=== PATIENT | female | born 1985 | race Caucasian/White ===

== ENCOUNTER 2020-04-03 17:16 | Emergency (ER) | payer OTHER ==
--- NOTE | 2020-04-03 17:33 | ED ---
General Adult HPI - General Chief complaint: Urogenital Stated complaint: blood in urine/back pain Time Seen by Provider: 04/03/20 17:29 Source: patient Mode of arrival: ambulatory Limitations: no limitations - History of Present Illness Initial comments: Patient presents the ED complaining of having urinary frequency and burning dysuria for the past 4 days or so. Patient states that she also developed hematuria today. Patient states that she is currently on her period. Patient admits to having mild diffuse lumbar back pain as well. Patient denies having any abdominal pain. Patient denies fever or chills, trauma or injury, headache, chest pain, dyspnea, dizziness, upper abdominal pain, nausea or vomiting, diarrhea or constipation, bloody or melanotic stool, vaginal discharge, leg pain/numbness/weakness, incontinence or urinary retention, or any other symptoms or complaints. Patient states that she has had urinary tract infections in the past. - Related Data Previous Rx's Medication Instructions Recorded Ciprofloxacin HCl 250 mg PO Q12H 5 Days #10 tab 04/03/20 Allergies Allergy/AdvReac Type Severity Reaction Status Date / Time tree nut Allergy Rash/Hives Verified 04/03/20 17:27 Review of Systems ROS Statement: Those systems with pertinent positive or pertinent negative responses have been documented in the HPI. ROS Other: All systems not noted in ROS Statement are negative. Past Medical History Additional Past Medical History / Comment(s): hashimotos disease History of Any Multi-Drug Resistant Organisms: None Reported Past Surgical History: No Surgical Hx Reported Smoking Status: Never smoker Past Alcohol Use History: None Reported Past Drug Use History: None Reported General Exam Limitations: no limitations General appearance: alert, in no apparent distress Head exam: Present: atraumatic, normocephalic Eye exam: Present: normal appearance, EOMI ENT exam: Present: mucous membranes moist Respiratory exam: Present: normal lung sounds bilaterally. Absent: respiratory distress, wheezes, rales, rhonchi Cardiovascular Exam: Present: regular rate, normal rhythm, normal heart sounds, other (Normal radial pulses bilaterally) GI/Abdominal exam: Present: soft, other (Mild suprapubic abdominal tenderness). Absent: distended, guarding, rebound Back exam: Present: normal inspection, full ROM. Absent: tenderness, CVA tenderness (R), CVA tenderness (L) Neurological exam: Present: alert, oriented X3. Absent: motor sensory deficit Psychiatric exam: Present: normal affect, normal mood Skin exam: Present: warm, dry, intact, normal color Course Vital Signs 04/03/20 17:24 Temperature 98.7 F Pulse Rate 84 Respiratory 18 Rate Blood Pressure 118/77 O2 Sat by Pulse 99 Oximetry Medical Decision Making - Medical Decision Making Patient is aware of her test results, and she feels comfortable going home at this time. Patient symptoms and UA are highly suggestive of UTI/hemorrhagic cystitis. Patient was given a dose of oral ciprofloxacin in the ED. Will discharge her home with a prescription for a course of ciprofloxacin. Patient was counseled about UTIs, and she was clearly explained return and follow-up instructions. She was instructed to follow up closely with her primary care provider. - Lab Data Lab Results 04/03/20 04/03/20 Range/Units 17:28 17:28 Urine Color Red Urine Appearance Turbid H (Clear) Urine pH 6.5 (5.0-8.0) Ur Specific [place] 1.025 (1.001-1.035) Urine Protein 3+ H (Negative) Urine Glucose (UA) Negative (Negative) Urine Ketones Negative (Negative) Urine Blood Large H (Negative) Urine Nitrite Negative (Negative) Urine Bilirubin Negative (Negative) Urine Urobilinogen <2.0 (<2.0) mg/dL Ur Leukocyte Esterase Large H (Negative) Urine RBC >182 H (0-5) /hpf Urine WBC >182 H (0-5) /hpf Urine WBC Clumps Many H (None) /hpf Urine Mucus Occasional H (None) /hpf Urine HCG, Qual Not Detected (Not Detectd) Disposition Clinical Impression: Urinary tract infection Disposition: HOME SELF-CARE Condition: Stable Instructions (If sedation given, give patient instructions): Urinary Tract Infection in Women (ED) Additional Instructions: Return to the ER immediately should you develop new or worsening pain, a fever, vomiting, feeling dizzy or faint, or new or worsening symptoms. Follow up closely with your primary care provider. Prescriptions: Ciprofloxacin HCl 250 mg PO Q12H 5 Days #10 tab Is patient prescribed a controlled substance at d/c from ED?: No Referrals: Kashif Man MD [Primary Care Provider] - 1-2 days Time of Disposition: 18:30
[2020-04-03 18:02] LABS: Appearance,Urine Turbid (Clear); Bilirubin,Urine Negative (Negative); Blood,Urine Large (Negative); Color,Urine Red; Glucose,Urine (UA) Negative (Negative); Ketones,Urine Negative (Negative); Leukocyte Esterase,Urine Large (Negative); Mucus,Urine Occasional /hpf; Nitrite,Urine Negative (Negative); PH, Urine 6.5 (5.0-8.0); Protein,Urine 3+ (Negative); RBC,Urine >182 /hpf (0-5); Urobilinogen,Urine <2.0 mg/dL (<2.0); WBC,Urine >182 /hpf (0-5)
[2020-04-03 18:03] LABS: Specific Gravity,Urine 1.025 (1.001-1.035)
[2020-04-03] MEDS ORDERED: CIPROFLOXACIN HCL 250 MG TAB PO STA (18:26)
[2020-04-03 18:58] VITALS: BP 119/74; PULSE 67; RESP 17; TEMP 98
== END 2020-04-03 18:58 | disposition home or self-care (01) ==
LOC: EC 17:16
DX: N39.0 Urinary tract infection, site not specified (principal); Z91.018 Allergy to other foods
CPT/HCPCS: 81001; 81025; 87086; 99283

== ENCOUNTER → 2024-08-27 | Outpatient (CLI) | payer OTHER ==
[2024-08-27 15:37] LABS: BUN/Creat Ratio 17.88 Ratio (12.00-20.00); Blood Urea Nitrogen 14.3 mg/dL (9.0-27.0); Chloride 106 mmol/L (96-109); Chol/HDL Ratio 2.82 Ratio; Glucose 93 mg/dL (70-110); LDL Cholesterol,Calculated 138.3 mg/dL (0.0-131.0); Potassium 4.5 mmol/L (3.5-5.5); Sodium 138 mmol/L (135-145)
[2024-08-27 15:38] LABS: ALT 26 U/L (8-44); AST 20 U/L (13-35); Albumin 4.2 g/dL (3.8-4.9); Albumin/Globulin Ratio 1.62 Ratio (1.60-3.17); Alkaline Phosphatase 71 U/L (41-126); Calcium 9.4 mg/dL (8.7-10.3); Carbon Dioxide 22.9 mmol/L (21.6-31.8); Globulin 2.6 g/dL (1.6-3.3); Total Bilirubin 0.6 mg/dL (0.3-1.2); Total Protein 6.8 g/dL (6.2-8.2)
[2024-08-27 17:05] LABS: Basophils # (A) 0.08 X 10*3/uL (0.00-0.10); Eosinophils # (A) 0.23 X 10*3/uL (0.04-0.35); Eosinophils % (A) 2.7 %; HGB 13.4 g/dL (12.0-15.0); Lymphocytes # (A) 2.83 X 10*3/uL (0.90-5.00); Lymphocytes % (A) 33.7 %; MCH 28.1 pg (27.0-32.0); MCHC 31.2 g/dL (32.0-37.0); MCV 90.1 FL (80.0-97.0); Mean Platelet Volume 10.6 FL (9.5-12.2); Monocytes # (A) 0.47 X 10*3/uL (0.20-1.00); Monocytes % (A) 5.6 %; NRBC Per 100 WBC 0 X 10*3/uL (0.00-0.01); Neutrophils # (A) 4.78 X 10*3/uL (1.80-7.70); Neutrophils % (A) 56.9 %; Platelet Count 320 X 10*3/uL (140-440); RBC 4.77 X 10*6/uL (4.10-5.20); RDW 13.8 % (11.5-14.5)
== END | disposition home or self-care (01) ==
LOC: LABWHC1 09:40
PROVIDERS: ATTEND Family Medicine
DX: Z00.00 Encounter for general adult medical examination without abnormal findings (principal); F41.9 Anxiety disorder, unspecified; F90.9 Attention-deficit hyperactivity disorder, unspecified type; E03.9 Hypothyroidism, unspecified
CPT/HCPCS: 36415; 80053; 80061; 84443; 85025

== ENCOUNTER → 2024-08-27 | Outpatient (CLI) | payer OTHER ==
--- NOTE | 2024-08-27 11:57 | XR ---
EXAMINATION TYPE: XR foot complete LT DATE OF EXAM: 08/27/2024 10:16 AM COMPARISON: None. CLINICAL INDICATION: Female, 38 years old with history of M79.672 LFT FOOT PAIN, x2 years TECHNIQUE: 3 view(s) obtained. FINDINGS: No acute fracture or dislocation evident. Soft tissues appear normal. Hammertoes may be present. Follow-up exams can be performed 7-10 days from acute trauma for continued pain. IMPRESSION: 1. No acute osseous abnormality left foot [facility], , 08/27/2024 11:54 AM
== END | disposition home or self-care (01) ==
LOC: RADXRMAIN 10:01
PROVIDERS: ATTEND Family Medicine
DX: M79.672 Pain in left foot (principal)